=== PATIENT | female | born 1965 | race Caucasian/White ===

== ENCOUNTER 2018-07-16 13:57 | Emergency (ER) | payer OTHER ==
[~2018-07-16] VITALS: Ht 160 cm; Wt 68.0 kg
[~2018-07-16 13:57] MED LIST: FIORICET 50-321 EACH PO
[2018-07-16] MEDS ORDERED: AMLODIPINE BESY10 MG (14:49)
[2018-07-16] MEDS ORDERED: COZAAR100 MG (14:49)
[2018-07-16] MEDS ORDERED: OSEL75CA PO (15:57)
== END 2018-07-16 16:02 | disposition home or self-care (01) ==
LOC: ER 13:57
DX: J11.1 Influenza due to unidentified influenza virus with other respiratory manifestations (principal)

== ENCOUNTER 2020-09-20 19:27 | Emergency (ER) | payer OTHER ==
[~2020-09-20] VITALS: Ht 170.2 cm; Wt 56.7 kg
[~2020-09-20 19:27] MED LIST changes: +AMLODIPINE BESY10 MG; +COZAAR100 MG; +OSEL75CA PO
[2020-09-20] MEDS ORDERED: NORFLEX100MG PO (22:17)
[2020-09-20] MEDS ORDERED: KETO10TA2 PO (22:17)
== END 2020-09-20 22:26 | disposition home or self-care (01) ==
LOC: ER 19:27
DX: M54.5 Low back pain (principal)

== ENCOUNTER 2021-08-27 11:20 | Emergency (ER) | payer OTHER ==
[~2021-08-27] VITALS: Ht 162.6 cm; Wt 67.1 kg
[~2021-08-27 11:20] MED LIST changes: +KETO10TA2 PO; +NORFLEX100MG PO
== END 2021-08-27 14:33 | disposition home or self-care (01) ==
LOC: ER 11:20
DX: M54.9 Dorsalgia, unspecified (principal)

== ENCOUNTER 2024-03-23 11:42 | Emergency (ER) | payer OTHER ==
[~2024-03-23] VITALS: Ht 152.4 cm; Wt 64.0 kg
[2024-03-23 12:38] VITALS: BP 110/72; O2SAT 97
[2024-03-23] MEDS ORDERED: KETOROLAC TROMETHAMINE 60 MG VIAL IM STA (13:52)
[2024-03-23] MEDS ORDERED: KETOROLAC TROMETHAMINE 60 MG VIAL IM ONE (14:14)
[2024-03-23 14:38] LABS: HEMATOCRIT 42.1 % (36.0-45.00); HEMOGLOBIN 14.5 g/dL (12.0-15.00); MEAN CORPUSCULAR HEMOGLOBIN 31.4 pg (27.00-32.0); MEAN CORPUSCULAR HGB CONC 34.4 g/dl (32.0-36.0); PLATELET COUNT 131 K/uL (150-450); RED BLOOD COUNT 4.62 M/uL (4.00-6.00); RED CELL DISTRIBUTION WIDTH 13.9 % (11.5-14.5)
== END 2024-03-23 16:21 | disposition home or self-care (01) ==
LOC: ER 11:44
PROVIDERS: General Practice
DX: J10.1 Influenza due to other identified influenza virus with other respiratory manifestations (principal); Z20.822 Contact with and (suspected) exposure to COVID-19

== ENCOUNTER 2024-12-30 14:14 | Emergency (ER) | payer OTHER ==
[~2024-12-30] VITALS: Ht 160 cm; Wt 65.8 kg
[2024-12-30] MEDS ORDERED: TRAMADOL HCL 50 MG TABLET PO ONE (16:00)
== END 2024-12-30 23:04 | disposition home or self-care (01) ==
LOC: ER 14:14
DX: G89.11 Acute pain due to trauma (principal); M25.561 Pain in right knee; M25.461 Effusion, right knee

== ENCOUNTER 2025-01-06 18:45 | Emergency (ER) | payer OTHER ==
[~2025-01-06] VITALS: Ht 167.6 cm; Wt 77.1 kg
[2025-01-06 22:05] VITALS: BP 134/84; O2SAT 100
[2025-01-06] MEDS ORDERED: METHYLPREDNISOLONE SOD SUCC 125 MG VIAL ONE (22:26)
[2025-01-06] MEDS ORDERED: FAMOTIDINE/PF 20 MG/2 ML VIAL ONE (22:26)
[2025-01-06] MEDS ORDERED: FAMOtidine 10 MG/ML (4ML VIAL) IV ONE (22:30)
[2025-01-06] MEDS ORDERED: IPRATROPIUM BROMIDE 0.5 MG/2.5 ML AMPUL.NEB IH ONE (22:30)
[2025-01-06] MEDS ORDERED: LEVALBUTEROL HCL 1.25 MG/3 ML SOLUTION IH ONE (22:30)
[2025-01-06] MEDS ORDERED: METHYLPREDNISOLONE SOD SUCC 125 MG VIAL IV ONE (22:30)
[2025-01-06 23:14] LABS: BASO % 0.3 % (0.1-1.2); EOS # 0.21 (0.04-0.54); EOS % 3.4 % (0.7-7.0); LYMPH # 1.43 (1.18-3.74); LYMPH % 23.2 % (19.3-53.1); MEAN PLATELET VOLUME 10.30 fl (9.4-12.4); MONO # 0.34 (0.24-0.82); MONO % 5.5 % (4.7-12.5); NEUT # 4.16 (1.56-6.13); NEUT % 67.4 % (34.0-71.1); RED CELL DISTRIBUTION WIDTH 13.0 % (11.6-14.4)
[2025-01-06 23:38] LABS: COVID-19 AG NEGATIVE (NEGATIVE)
[2025-01-06] MEDS ORDERED: LEVALBUTER0.63 MG/3 IH (23:50)
[2025-01-06 23:53] LABS: ALT/SGPT 28.0 U/L (12-78); AST/SGOT 19.0 U/L (15-37); BILIRUBIN TOTAL 0.45 mg/dL (0.3-1.2); BUN CREA RATIO 17.0 (7.0-25.0); CREATININE SERUM 0.64 mg/dL (0.55-1.02); GFR 94.65; GLOBULINA 4.2 G/DL (2.4-3.5); GLUCOSE FASTING 90.0 mg/dL (65-100); OSMOLALITY SERUM 278.0 MOSM/KG (275-295)
[2025-01-07] MEDS ORDERED: LEVALBUTEROL HCL 0.63 MG/3 ML SOLUTION IH ONE (00:02)
[2025-01-07] MEDS ORDERED: IPRATROPIUM BROMIDE 0.5 MG/2.5 ML AMPUL.NEB IH ONE (00:02)
== END 2025-01-07 00:38 | disposition home or self-care (01) ==
LOC: ER 18:46
PROVIDERS: General Practice
DX: R06.02 Shortness of breath (principal); T54.91XA Toxic effect of unspecified corrosive substance, accidental (unintentional), initial encounter; Y92.89 Other specified places as the place of occurrence of the external cause; R05.8 Other specified cough; Z20.822 Contact with and (suspected) exposure to COVID-19